=== PATIENT | male | born 1945 | race Caucasian/White ===

== ENCOUNTER 2019-01-05 13:33 | Emergency (ER) | payer MEDICARE, OTHER ==
[~2019-01-05] VITALS: Ht 172.7 cm; Wt 69.4 kg
[2019-01-05 13:44] VITALS: BP 148/82
[2019-01-05] MEDS ORDERED: IBUPROFEN 600 MG TABLET PO ONE (14:00)
--- NOTE | 2019-01-05 15:55 | NUR ---
CALLED [facility] TO READ IMAGES
== END 2019-01-05 16:29 | disposition home or self-care (01) ==
LOC: ER 13:33
DX: M54.5 Low back pain (principal); G89.29 Other chronic pain; Z98.890 Other specified postprocedural states; W01.0XXA Fall on same level from slipping, tripping and stumbling without subsequent striking against object, initial encounter; Y93.01 Activity, walking, marching and hiking; Y92.89 Other specified places as the place of occurrence of the external cause; Y99.8 Other external cause status
CPT/HCPCS: 72131-TC

== ENCOUNTER 2019-03-02 11:14 | Inpatient (IN) | payer OTHER, MEDICARE ==
[~2019-03-02] VITALS: Ht 172.7 cm; Wt 65.8 kg
--- NOTE | 2019-03-02 11:15 | NUR ---
BIB [facility] FROM HOME, WORSENING BACK PAIN,UNABLE TO GET UP, SITTING ON A CHAIR UPON EMS ARRIVAL. PATIENT ASSISTED TO BED 7, CHANGED INTO GOWN. SEEN AND EVALUATED BY DR. MENDOZA.
[2019-03-02] MEDS ORDERED: TRAMADOL HCL 50 MG TABLET (11:41)
[2019-03-02 11:44] LABS: BASOPHILS % (AUTO) 0.4 % (0.0-2.0); EOSINOPHILS % (AUTO) 2.5 % (0.0-6.0); HEMATOCRIT 45 % (39-51); HEMOGLOBIN 15.2 g/dL (13.5-17.5); LYMPHOCYTES # (AUTO) 1.6 /CMM (0.8-4.8); LYMPHOCYTES % (AUTO) 25.1 % (20.0-44.0); MEAN CORPUSCULAR HGB CONC 34 g/dl (31.0-36.0); MEAN CORPUSCULAR VOLUME 93 fL (80-96); MONOCYTES # (AUTO) 0.8 /CMM (0.1-1.30); MONOCYTES % (AUTO) 12.3 % (2.0-12.0); NEUTROPHILS # (AUTO) 3.8 /CMM (1.8-8.9); NEUTROPHILS % (AUTO) 59.7 % (43.0-81.0); PLATELET COUNT (AUTO) 158 /CMM (150-450); RED BLOOD CELL COUNT(AUTO) 4.81 MIL/uL (4.5-6.0); WHITE BLOOD COUNT (AUTO) 6.4 K/uL (4.3-11.0)
[2019-03-02 11:53] LABS: CALCIUM, SERUM 8.9 mg/dL (8.5-10.1); CARBON DIOXIDE 28 mmol/L (21-32); CHLORIDE 102 mmol/L (98-107); CREATININE 0.8 mg/dL (0.6-1.3); GLUCOSE 91 mg/dL (74-106); POTASSIUM 3.9 mmol/L (3.5-5.1); SODIUM SERUM 138 mmol/L (136-145); UREA NITROGEN, BLOOD 14 mg/dL (7-18)
[2019-03-02 11:59] LABS: ALANINE AMINOTRANSFERASE 22 U/L (12-78); ALBUMIN 3.6 g/dL (3.4-5.0); ALKALINE PHOSPHATASE 96 U/L (46-116); ASPARTATE AMINOTRANSFERASE 24 U/L (15-37); BILIRUBIN,DIRECT 0.3 mg/dL (0.0-0.2); BILIRUBIN,TOTAL 1.3 mg/dL (0.2-1.0); TOTAL PROTEIN, SERUM 7.1 g/dL (6.4-8.2)
--- NOTE | 2019-03-02 13:09 | NUR ---
CALLED NURSING SUP. FOR MS BED
--- NOTE | 2019-03-02 14:06 | NUR ---
MANAGER RELOCATION CALLED; NO AUTH FOR PT. WILL CALL BACK. ADMITTING DEPT AWARE. PT NOT READY TO MOVE
--- NOTE | 2019-03-02 14:22 | NUR ---
PT OK TO GO; REPORT GIVEN TO MIKE EDOUARD FOR ARTEMIO; PT WILL BE TRANSPORTED TO 3RD FLOOR VIA [facility]
[2019-03-02 15:00] VITALS: BP 117/68
[2019-03-02] MEDS ORDERED: ONDANSETRON HCL/PF 4 MG/2 ML VIAL IVP PRN (15:00)
[2019-03-02] MEDS ORDERED: ACETAMINOPHEN 325 MG TABLET PO PRN (15:00)
[2019-03-02] MEDS ORDERED: Z GUARD REMEDY 2 OZ OINT TP PRN (15:00)
--- NOTE | 2019-03-02 15:00 | NUR ---
m/s stick welder: admission admitted this 73 years old male [facility] with dx: frequent fall, hip contusion. awake, a/ox4. pt has hx: chronic pain. pain is tolerable at this time. oriented to room and surroundings. noted with multiple scratch mcgregor with scab to faith hips, knees, legs, thigh area, and left shoulder. also noted left 3rd finger swelling with discoloration and scabbing. will inform pmd. vss. no distress noted. instructed to call for assistance. will continue to monitor.
--- NOTE | 2019-03-02 15:20 | NUR ---
m/s legal practice manager: notes dr. carbone here and informed him re: left 3rd finger swelling with order to do stat x-ray. order carried out and acknowledged.
[2019-03-02 16:00] VITALS: BP 117/68
[2019-03-02] MEDS: IV NS 0.9% 1,000 ML IV PRN (16:12)
[2019-03-02] MEDS: ENOXAPARIN SODIUM 40 MG/0.4 ML DISP.SYRIN SQ SCH (16:21)
--- NOTE | 2019-03-02 16:25 | NUR ---
m/s office nurse: notes x-ray resulted to left 3rd finger negative for fracture or dislocation. pt made aware.
--- NOTE | 2019-03-02 18:00 | NUR ---
m/s benefit director: notes pt unable to tolerate bed breen. provided bsc and assisted with 2 person assistance. pt had a small bowel movement. assisted back to bed. kept comfortable. dinner served. hob elevated. instructed to call for assistance. will continue to monitor.
--- NOTE | 2019-03-02 19:10 | NUR ---
rn pm opening notes. patient seen in bed. bedside report recieved from maykel roca patient in bed layin on side. poc reveiwed questions concerns addressed. patient is a smoker and expressed some withdrawl states "I want a ciggarette." patient informed he can request a nicotine patch. patient states "No i don't think i need that i will be fine. bed down locked. safety measures in place sr x2 call ligth in rech. bed alarm active.
--- NOTE | 2019-03-02 19:20 | NUR ---
m/s web content manager: notes report given to monique (pradeep) for continuity of care.
[2019-03-02 20:00] VITALS: BP 124/71
[2019-03-02] MEDS: HYDROCODONE/APAP 5/325MG 1 EACH TABLET PO PRN (20:19)
[2019-03-03] MEDS: HYDROCODONE/APAP 5/325MG 1 EACH TABLET PO PRN ×2 (00:08→04:57)
--- NOTE | 2019-03-03 03:00 | NUR ---
bimal called about muscle relaxant. spoke with bimal in regards to patients pain management regiment informed that patients legs are very rigid. new order for flexeril 10 mg tid prn recieved.
[2019-03-03] MEDS: CYCLOBENZAPRINE 10 MG TABLET PO PRN ×2 (04:21→17:47)
[2019-03-03] MEDS: IV NS 0.9% 1,000 ML IV PRN ×2 (04:57→22:19)
--- NOTE | 2019-03-03 05:22 | NUR ---
pt c/o sob patient sitting up in bed c/o sob. dr. wallis called infomred patient breathing rate of 24 c/o sob placed on 2lnc patient stating " I just cant seem to take a deep breath." patient smoker of 1/2 pack daily. new orders recieved for duoneb x1 and a nicotine 21 mg patch daily.
[2019-03-03] MEDS ORDERED: IPRATROPIUM NEB FS 0.5 MG/2.5 ML AMPUL.NEB NEB SCH (05:30)
[2019-03-03] MEDS ORDERED: ALBUTEROL FS 2.5 MG/0.5 ML VIAL.NEB NEB SCH (05:30)
[2019-03-03] MEDS: NICOTINE PATCH (21MG) 21 MG PATCH.TD24 TD SCH ×2 (05:30→09:08)
[2019-03-03 07:17] LABS: BASOPHILS % (AUTO) 0.5 % (0.0-2.0); HEMATOCRIT 39 % (39-51); HEMOGLOBIN 13.1 g/dL (13.5-17.5); LYMPHOCYTES # (AUTO) 1.4 /CMM (0.8-4.8); LYMPHOCYTES % (AUTO) 34.5 % (20.0-44.0); MEAN CORPUSCULAR HGB CONC 34 g/dl (31.0-36.0); MEAN CORPUSCULAR VOLUME 93 fL (80-96); MONOCYTES # (AUTO) 0.4 /CMM (0.1-1.30); MONOCYTES % (AUTO) 10.5 % (2.0-12.0); NEUTROPHILS # (AUTO) 2.1 /CMM (1.8-8.9); NEUTROPHILS % (AUTO) 51.5 % (43.0-81.0); PLATELET COUNT (AUTO) 130 /CMM (150-450); RED BLOOD CELL COUNT(AUTO) 4.24 MIL/uL (4.5-6.0); WHITE BLOOD COUNT (AUTO) 4.1 K/uL (4.3-11.0)
--- NOTE | 2019-03-03 07:30 | NUR ---
BEDSIDE REPORT GIVEN TO MAYRA SANTILLAN. PATIENT SEEN IN BED WITH EYES CLOSED. IV INFUSING TO LEFT HAND 20 GAUGE. PATIENT IN NO APPAREN DISTRESS. BREATHING IS EVEN AND UNLABORED. . BED DOWN LOCKED SRX3. FALL ALARM IS ACTIVE.
[2019-03-03 07:34] LABS: ALANINE AMINOTRANSFERASE 22 U/L (12-78); ALBUMIN 2.9 g/dL (3.4-5.0); ALKALINE PHOSPHATASE 73 U/L (46-116); ASPARTATE AMINOTRANSFERASE 23 U/L (15-37); BILIRUBIN,TOTAL 0.8 mg/dL (0.2-1.0); CALCIUM, SERUM 8.3 mg/dL (8.5-10.1); CARBON DIOXIDE 26 mmol/L (21-32); CHLORIDE 106 mmol/L (98-107); CREATININE 0.9 mg/dL (0.6-1.3); GLUCOSE 80 mg/dL (74-106); PHOSPHORUS 3.2 mg/dL (2.5-4.9); POTASSIUM 3.6 mmol/L (3.5-5.1); SODIUM SERUM 141 mmol/L (136-145); TOTAL PROTEIN, SERUM 5.8 g/dL (6.4-8.2); UREA NITROGEN, BLOOD 17 mg/dL (7-18)
[2019-03-03 07:38] LABS: CHOLESTEROL 112 mg/dL (<200); HDL CHOLESTEROL 36 mg/dL (40-60); LDL 66 mg/dL (0-99); THYROID STIMULATING HORMONE 2.305 uIU/mL (0.358-3.74); TRIGLYCERIDES 64 mg/dL (30-150)
[2019-03-03 08:00] VITALS: BP 106/75
--- NOTE | 2019-03-03 08:00 | NUR ---
MS RN OPENING NOTES Received Patient resting and asleep in bed. A/O x 3. VS stable with no acute distress. Breathing even and unlabored with SPO2 94% on room air with no respiratory distress. No signs and symptoms of pain. 20g PIV on LEFT HAND clean, dry, intact and flushing well with IVF NS running at 75ml/hr. Safety precautions in place. Bed locked and set to lowest position with side rails x 2 up. Will continue to monitor.
[2019-03-03 08:15] LABS: IRON, SERUM 79 ug/dl (50-175); TOTAL IRON BINDING CAPACITY 289 ug/dl (250-450)
[2019-03-03] MEDS: ENOXAPARIN SODIUM 40 MG/0.4 ML DISP.SYRIN SQ SCH (09:09)
[2019-03-03 16:00] VITALS: BP 139/48
--- NOTE | 2019-03-03 19:00 | NUR ---
RN MS NOTES RECEIVED PATIENT IN BED AWAKE ALERT AND ORIENTED X 4, RESPIRATIONS EVEN AND UNLABORED WITH EQUAL RISE AND FALL OF CHEST, DENIES ANY PAIN OR DISCOMFORT AT THIS TIME, ORIENTED TO STAFF AND CALL LIGHT AND KEPT WITHIN REACH, IV SITE TO LEFT HAND #20G IVF RUNNING ORDEREDM BED ALARM IN PLACE, URINAL AT BEDSIDE, LOW BED AND LOCKED, ALL NEEDS ATTENDED AT THIS TIME WILL CONTINUE TO MONITOR.
--- NOTE | 2019-03-03 19:40 | NUR ---
MS RN CLOSING NOTES Patient resting in bed. A/O x 3. VS stable with no acute distress. Breathing even and unlabored on room air with no respiratory distress. No signs and symptoms of pain. 20g PIV on LEFT HAND clean, dry, intact and flushing well with IVF NS running at 75ml/hr. Safety precautions in place. Bed locked and set to lowest position with side rails x 2 up. All needs rendered at this time. Will endorse plan of care to oncoming shift.
[2019-03-03 20:00] VITALS: BP 125/64
[2019-03-03 20:10] VITALS: BP 125/64
[2019-03-04] MEDS: HYDROCODONE/APAP 5/325MG 1 EACH TABLET PO PRN (00:35)
--- NOTE | 2019-03-04 00:35 | NUR ---
RN MS NOTES PATIENT COMPLAINT OF PAIN TO BOTH LOWER EXT AND BACK REQUESTING FOR PAIN MEDICATION NORCO, VS WNL PRN NORCO ORDERED GIVEN, WILL CONTINUE TO MONITOR FOR EFFECTIVENESS.
--- NOTE | 2019-03-04 02:09 | NUR ---
RN MS CLOSING NOTES PATIENT IN BED AWAKE ALERT AND ORIENTED X 4, RESPIRATIONS EVEN AND UNLABORED WITH EQUAL RISE AND FALL OF CHEST PLACED ON 2 L VIA NC FOR COMFORT PER PATIENT REQUEST PAIN MEDICATION EFFECTIVE 2/10 RAIN RATE , CALL LIGHT AND KEPT WITHIN REACH, IV SITE TO LEFT HAND #20G IVF RUNNING ORDERED BED ALARM IN PLACE, URINAL AT BEDSIDE, LOW BED AND LOCKED, ALL NEEDS ATTENDED AT THIS TIME PATIENT EFT COMFORTABLE AND IN STABLE CONDITION ENDORSED TO JORDIN FOR CONTINUITY OF CARE.
--- NOTE | 2019-03-04 02:12 | NUR ---
MS JAVAN INITIAL NOTES RECEIVED REPORT FROM ANOTHER NURSE CALLY FOR CONTINUITY OF CARE. PT SLEEPING IN BED WITH IVF STILL INFUSING ON HIS LEFT HAND PATENT AND INTACT. SEEMS COMFORTABLE AFTER PAIN MEDS GIVEN EARLIER. NO SIGNS OF ANY DISTRESS NOTED. KEPT HIM WARM AND COMFORTABLE AT ALL TIMES. PLACE CALL LIGHT AT REACH. WILL CONTINUE MONITORING.
--- NOTE | 2019-03-04 07:30 | NUR ---
RN OPENING NOTES RECEIVED PT. PT STABLE RESTING IN BED. NO S/S OF RESP DISTRESS/SOB. NO C/O PAIN AT THIS TIME. PT STATES THAT HE WILL BE TRANSFERRING OUT OF FACILITY TODAY. WILL F/U WITH . SAFETY MEASURES IN PLACE, CALL LIGHT WITHIN REACH. WILL CONT TO MONITOR.
[2019-03-04 07:35] LABS: BASOPHILS % (AUTO) 0.4 % (0.0-2.0); HEMATOCRIT 38 % (39-51); HEMOGLOBIN 12.8 g/dL (13.5-17.5); LYMPHOCYTES # (AUTO) 1.2 /CMM (0.8-4.8); LYMPHOCYTES % (AUTO) 29.4 % (20.0-44.0); MEAN CORPUSCULAR HGB CONC 34 g/dl (31.0-36.0); MEAN CORPUSCULAR VOLUME 92 fL (80-96); MONOCYTES # (AUTO) 0.5 /CMM (0.1-1.30); MONOCYTES % (AUTO) 11.8 % (2.0-12.0); NEUTROPHILS # (AUTO) 2.3 /CMM (1.8-8.9); NEUTROPHILS % (AUTO) 54.4 % (43.0-81.0); PLATELET COUNT (AUTO) 131 /CMM (150-450); RED BLOOD CELL COUNT(AUTO) 4.09 MIL/uL (4.5-6.0); WHITE BLOOD COUNT (AUTO) 4.2 K/uL (4.3-11.0)
[2019-03-04 07:50] LABS: CALCIUM, SERUM 8.7 mg/dL (8.5-10.1); CARBON DIOXIDE 27 mmol/L (21-32); CHLORIDE 106 mmol/L (98-107); CREATININE 0.8 mg/dL (0.6-1.3); GLUCOSE 82 mg/dL (74-106); MAGNESIUM 2.1 mg/dL (1.8-2.4); PHOSPHORUS 3.5 mg/dL (2.5-4.9); POTASSIUM 4.3 mmol/L (3.5-5.1); SODIUM SERUM 138 mmol/L (136-145); UREA NITROGEN, BLOOD 17 mg/dL (7-18)
--- NOTE | 2019-03-04 07:50 | NUR ---
MS VENDING MACHINE REFILLER CLOSING NOTES PT AWAKE AND ALERT DENIES ANY PAIN OR ANY DISCOMFORT. SLEPT WELL AND STABLE AFTER PAIN MEDS GIVEN LAST NIGHT. IVF STILL INFUSING. KEPT HIM WARM AND COMFORTABLE AT ALL TIMES. PLACE CALL LIGHT AT REACH. ENDORSE TO AM NURSE FOR CONTINUITY OF CARE.
[2019-03-04 08:00] VITALS: BP 123/66
[2019-03-04] MEDS: ENOXAPARIN SODIUM 40 MG/0.4 ML DISP.SYRIN SQ SCH (08:37)
[2019-03-04] MEDS: NICOTINE PATCH (21MG) 21 MG PATCH.TD24 TD SCH (08:37)
[2019-03-04 16:00] VITALS: BP 128/73
--- NOTE | 2019-03-04 18:29 | NUR ---
RN CLOSING NOTE PT STABLE. ALL PT NEEDS ANTICIPATED AND MET. PT TO BE D/C TO [facility] ROOM 106A, PICKUP AT 1999 TODAY, 03/04/19. SAFETY MEASURES IN PLACE, CALL LIGHT IN REACH. WILL ENDORSE TO PURCHASE REQUEST EDITOR FOR ARTEMIO.
[2019-03-04 20:00] VITALS: BP 130/77
--- NOTE | 2019-03-04 20:15 | NUR ---
MS UKE OPERATOR NOTES PT SEEN IN BED AWAKE AND ALERT LYING IN BED AND AWARE THAT HE'S GOING TO [facility]. DENIES ANY PAIN OR ANY DISCOMFORT. VITAL SIGNS FF. BP 130/77, PULSE 78, RESP 20, TEMP 97.7 AND O2 SAT 99%. [facility] AND GAVE REPORT TO NURSE GOLD AND CHASSIS MECHANIC ALSO ARRIVED TO MORTGAGE PROCESSOR THE PATIENT. GAVE REPORT WELL PT COPY OF HIS CHART AND HIS BELONGING CHECKED BY AM NURSE .
== END 2019-03-04 20:20 | DRG 351 ==
LOC: ER 11:16 → MED 14:03
PROVIDERS: ADMIT Nurse Practitioner Acute Care; ATTEND Nurse Practitioner Acute Care
DX: M16.0 Bilateral primary osteoarthritis of hip (principal); G89.29 Other chronic pain; Z98.890 Other specified postprocedural states; R29.6 Repeated falls
CPT/HCPCS: 36415; 71045-TC; 72170-TC; 73140-TC; 80048-TC; 80053-TC; 80061-TC; 80076-TC; 83540-TC; 83735-TC; 84100-TC; 84443-TC; 84484-TC; 85025-TC; 85652-TC; 87081-TC; 93307-TC; 97110-TC; 97112-TC; 97530-TC; G0378; J1650; J7030